=== PATIENT | male | born 1960 | race Two or more races ===

== ENCOUNTER → 2018-05-21 | Outpatient (CLI) | payer OTHER | LOC: CIMAGING 07:15 | PROVIDERS: ATTEND Family Medicine | DX: R74.8 Abnormal levels of other serum enzymes (principal); K76.9 Liver disease, unspecified | CPT/HCPCS: 76705-PO ==

== ENCOUNTER → 2018-06-08 | Outpatient (CLI) | payer OTHER ==
[~2018-06-08] MED LIST: GADOBUTROL 10 ML VIAL IVP ONE
== END ==
LOC: FIMAGING 19:07
PROVIDERS: ATTEND Family Medicine
DX: R94.5 Abnormal results of liver function studies (principal)
CPT/HCPCS: A9585

== ENCOUNTER → 2018-06-30 | Outpatient (CLI) | payer OTHER | LOC: FIMAGING 09:18 ==

== ENCOUNTER 2018-07-01 09:32 | Outpatient (CLI) | payer OTHER ==
[2018-07-01] MEDS ORDERED: fentaNYL 100 MCG/2 ML INJ IVP PRN (09:46)
[2018-07-01] MEDS ORDERED: NALOXONE HCL 0.4 MG/ML INJ IVP PRN (09:46)
[2018-07-01] MEDS ORDERED: MIDAZOLAM 2 MG/2 ML VIAL IVP PRN (09:46)
[2018-07-01] MEDS ORDERED: FLUMAZENIL 0.5 MG/5 ML MDV IVP PRN (09:46)
[2018-07-01] MEDS ORDERED: MEPERIDINE 25 MG/ML SYR IVP PRN (09:46)
[2018-07-01] MEDS ORDERED: NS 1,000 ML IV SCH (10:00)
[2018-07-01] MEDS ORDERED: LIDOCAINE 1% 300 MG/30 ML SDV ONE (10:02)
[2018-07-01 10:36] LABS: INR 1.16 (0.83-1.16)
--- NOTE | 2018-07-01 11:36 | PDGENHP ---
History & Physical Chief Complaint: liver tissue needed for elevated liver enzymes History of Present Illness: no h/o cirrhosis, or hepatitis. Pertinent Past, Social, Family History: n/a Relevant Physical Exam: in no distress Cardiorespiratory Assessment: cta, rrr
--- NOTE | 2018-07-01 11:36 | PDPROPOC ---
Sedation Plan of Care Sedation Plan of Care: vital signs stable, mental status noted, patient educated of risks, benefits, alternatives, patient can tolerate sedation ASA Classification: ASA 2 Planned drugs: fentanyl, midazolam Mallampati Score: Class 2 Mallampati Reference Image: Patient passed 3-3-2 rule?: Yes
--- NOTE | 2018-07-01 11:55 | PDRADPN ---
Radiology Procedure Note Date of Procedure: 07/01/18 Radiologist: Magui Gomes Anesthesia: IV Sedation Pre-op Diagnosis: ELEVATED LIVER ENZYMES Post-op Diagnosis: SAME Procedure: LIVER BX Inf/Abcess present in the surg proc area at time of surgery?: No
[2018-07-01] MEDS ORDERED: oxyCODONE IR 5 MG TAB PO PRN (12:17)
[2018-07-01] MEDS ORDERED: ONDANSETRON 4 MG/2 ML VIAL IVP PRN (12:17)
[2018-07-01 14:40] VITALS: BP 132/81
== END 2018-07-01 14:54 | disposition home or self-care (01) ==
LOC: FIMAGING 09:32
PROVIDERS: ATTEND Internal Medicine
PROC: 0FB03ZX Excision of Liver, Percutaneous Approach, Diagnostic (ICD-10-PCS; principal; 2018-07-01 12:02)
DX: D37.6 Neoplasm of uncertain behavior of liver, gallbladder and bile ducts (principal)
CPT/HCPCS: J2250; J2310; J3010